=== PATIENT | female | born 1970 | race African-American/Black ===

== ENCOUNTER 2022-05-06 08:36 | Day surgery (SDC) | payer BC ==
[2022-05-01 16:11] VITALS: BMI 45.1
[2022-05-06 09:10] VITALS: TEMP 97.8
[2022-05-06] MEDS ORDERED: PROPOFOL 80 ML ONE (10:30)
[2022-05-06 11:49] VITALS: PULSE 68; RESP 18
[2022-05-06 12:37] VITALS: BP 112/70
== END 2022-05-06 12:37 | disposition home or self-care (01) ==
LOC: FASU-ENDO 08:36
PROVIDERS: ATTEND Internal Medicine Gastroenterology
PROC: 0DB98ZX Excision of Duodenum, Via Natural or Artificial Opening Endoscopic, Diagnostic (ICD-10-PCS; 2022-05-06)
PROC: 0DB68ZX Excision of Stomach, Via Natural or Artificial Opening Endoscopic, Diagnostic (ICD-10-PCS; 2022-05-06)
PROC: 0DJD8ZZ Inspection of Lower Intestinal Tract, Via Natural or Artificial Opening Endoscopic (ICD-10-PCS; principal; 2022-05-06 11:10)
DX: Z12.11 Encounter for screening for malignant neoplasm of colon (principal); K29.50 Unspecified chronic gastritis without bleeding; R12 Heartburn
CPT/HCPCS: 82962; 88305-TC; 88342-TC